=== PATIENT | female | born 2005 | race Caucasian/White ===

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

== ENCOUNTER 2025-01-24 15:37 | Emergency (ER) | payer OTHER, SELFPAY ==
[2025-01-24 15:55] VITALS: BP 124/68; PULSE 72; RESP 18; TEMP 36.9; O2SAT 100
[2025-01-24 16:07] LABS: EDSTREPNEGPOS1 Negative (Negative)
--- NOTE | 2025-01-24 17:11 | ED_ITS ---
HPI - URI/Sore Throat General Chief Complaint: Upper Respiratory Infection Stated Complaint: Sore throat L ear ache Time Seen by Provider: 01/24/25 17:12 History of Present Illness HPI Narrative: 19-year-old female presented for complaint of sore throat and ear pain. Onset Five days. Endorses white patches on the tonsils. Endorses fever at onset which has resolved. Denies associated nasal congestion or drainage, cough, shortness of breath, nausea, vomiting, or lethargy. Taking Tylenol and Airborne for symptoms. Related Data Home Medications ?Medication ?Instructions ?Recorded ?Confirmed ?Last Taken ?Type fluoxetine 10 mg capsule mg 12/03/24 Unknown History fluoxetine 20 mg capsule mg 12/03/24 Unknown History Allergies Allergy/AdvReac Type Severity Reaction Status Date / Time No Known Allergies Allergy Verified 01/24/25 16:01 Review of Systems Review of Systems: CONSTITUTIONAL: Denies body aches, fever, chills, or sweats. EYES: Denies visual changes, redness, or discharge. ENT: reports sore throat, otalgia Denies rhinorrhea, congestion. CARDIOVASCULAR: Denies chest pain, palpitations, or edema. RESPIRATORY: Denies dyspnea. GASTROINTESTINAL: Denies abdominal pain, nausea, vomiting, or diarrhea. SKIN: Denies rash NEUROLOGIC: Denies headache Exam Narrative: GENERAL: Ill-appearing, no acute distress. EYES: conjunctivae clear ENT: Mucous membranes moist. TMs pearly mehta with normal light reflex bilaterally; no tragal tenderness. Oropharynx erythematous without lesions. Tonsils enlarged 2+ bilaterally with exudate. No drooling, no hoarseness, no trismus, uvula midline. No tripod positioning, hot potato voice, or soft palate swelling. NECK: Supple. No lymphadenopathy CHEST: Clear to auscultation, breath sounds equal. No respiratory distress, speaks in full sentences. HEART: Regular rate and rhythm. No murmur heard. SKIN: Warm, dry, no rash. NEURO: Alert and oriented x3. Course Course Level of Care: Express Care Visit Vital Signs Vital signs: Vital Signs Temperature 98.5 F 01/24/25 15:55 Pulse Rate 72 01/24/25 15:55 Respiratory Rate 18 01/24/25 15:55 Blood Pressure 124/68 01/24/25 15:55 Pulse Oximetry 100 12/19/25 15:55 Temperature 98.5 F 01/24/25 15:55 Pulse Rate 72 01/24/25 15:55 Respiratory Rate 18 01/24/25 15:55 Blood Pressure 124/68 01/24/25 15:55 Pulse Oximetry 100 01/24/25 15:55 MDM MDM Narrative Medical decision making narrative: Discussed physical exam findings , will treat based on exam and CC Advised supportive measures and signs/symptoms to go to the ER. Pt is appropriate for outpt treatment and f/u. Differential Diagnosis Differential Diagnosis: influenza, covid, sinusitis, OM, strep pharyngitis, URI Lab Data Labs: Lab Results 01/24/25 Range/Units 16:05 POC Grp A Strep Screen Negative (Negative) Discharge Plan Discharge Clinical Impression: Exudative tonsillitis Patient Disposition: Home Condition: Stable Instructions: Antibiotic Form, Strep Throat (ED) Additional Instructions: - Take the antibiotic as directed. Fever and sore throat typically resolve within one to three days. Most patients can return to work, school, or daycare after 12 to 24 hours of antibiotic therapy, provided you are fever free and otherwise well. -Eat and drink things that are easy to swallow, like soft foods, cool liquids, tea with honey, or popsicles . -Salt water gargles and/or may use topical anesthetic ( Chloraseptic spray) or lozenges to relieve dryness or throat pain -Alternate Tylenol and ibuprofen as needed for pain and fever as directed. -Frequent hand washing or hand layer out plate glass is one of the best ways to prevent spread of infection. Throw away the toothbrush after 24hours of antibiotic. -Follow up with primary care provider in 2-3 days if condition is not improving -Go to the ER if you have trouble breathing, cannot drink enough fluids, have muffled voice or drooling, difficulty opening your mouth, or severe swelling. Patient Language: Kiny[place] Prescriptions: New amoxicillin 500 mg tablet 1,000 mg PO DAILY 10 Days Qty: 20 0RF No Action fluoxetine 10 mg capsule fluoxetine 20 mg capsule Follow-up/Referrals: UNKNOWN,DOCTOR [Primary Care Provider] Time of Disposition: 17:18
== END 2025-01-24 17:22 | disposition home or self-care (01) ==
PROVIDERS: Emergency Provider Nurse Practitioner Family
DX: J03.90 Acute tonsillitis, unspecified (principal)
CPT/HCPCS: 87081; 87880; 99213; G0463